=== PATIENT | male | born 1965 | race Caucasian/White ===

== ENCOUNTER 2024-04-29 11:30 | Inpatient (IN) | payer BC, SELFPAY ==
--- NOTE | ~2024-04-29 | CT_ITS ---
EXAMINATION: CT ABDOMEN AND PELVIS WITH CONTRAST CLINICAL INFORMATION: Abdominal distention. Right lower quadrant tenderness. Rule out bowel obstruction COMPARISON: None available. TECHNIQUE: Multidetector volumetric images were obtained from the superior aspect of the liver through the pubic symphysis following administration 85 mL of Omnipaque 350 intravenous contrast. Sagittal and coronal reformatted images were obtained on the technologist's workstation. Oral contrast: No This CT examination was performed using dose optimization techniques as appropriate, variously including the following: *Automated exposure control *Adjustment of mA and/or kV according to patient size (this includes techniques or standardized protocols for targeted exams where dose is matched to indication/reason for exam; i.e. extremities or head) *Use of iterative reconstruction technique DLP: 902 mGy-cm FINDINGS: LUNG BASES: The visualized lung bases are unremarkable. LIVER, GALLBLADDER, AND BILIARY TREE: The liver is normal in size, shape, and attenuation. No focal hepatic lesion or biliary ductal dilatation is present. The gallbladder is distended, with thickened edematous wall and pericholecystic fluid. PANCREAS: Unremarkable. SPLEEN: Unremarkable. ADRENAL GLANDS: Unremarkable. KIDNEYS AND URETERS: The kidneys are normal in size, shape, and attenuation. No hydronephrosis, hydroureter, or calculi seen. No perinephric stranding. BLADDER: Unremarkable. GASTROINTESTINAL TRACT: The small and large bowel are unremarkable. The appendix is unremarkable. ABDOMINAL WALL: No significant hernia is appreciated. LYMPH NODES: Normal. VASCULAR: Unremarkable. PELVIC VISCERA: Unremarkable. OSSEOUS STRUCTURES: Unremarkable. CT/CT abdomen pelvis w IV con IMPRESSION: Distended gallbladder with thickened edematous wall and pericholecystic fluid. Findings are concerning for acute cholecystitis. Recommend further evaluation with right upper quadrant ultrasound, and correlation with physical exam. Fleischner guidelines were followed. Electronically signed by: Addy Hammond MD 04/29/2024 02:58 PM EST
--- NOTE | ~2024-04-29 | US_ITS ---
EXAMINATION: US ABDOMEN LIMITED CLINICAL INFORMATION: Distended gallbladder. Rule out stones.. COMPARISON: CT scan dated April 29, 2024. TECHNIQUE: Real-time imaging of the gallbladder. FINDINGS: GALLBLADDER: The gallbladder is physiologically distended. There are innumerable, subcentimeter, layering gallstones. Mild diffuse gallbladder wall thickening. Trace pericholecystic fluid. No evidence of hyperemia. Technologist reports positive sonographic Eagle's sign. COMMON BILE DUCT: Normal in caliber measuring 0.5 cm in diameter. US/US abdomen limited IMPRESSION: innumerable, subcentimeter, layering gallstones. Mild diffuse gallbladder wall thickening. Trace pericholecystic fluid. No evidence of hyperemia. Technologist reports positive sonographic Eagle's sign. Electronically signed by: Arron Fox MD 04/29/2024 04:16 PM FANNIE
[2024-04-29 11:41] VITALS: BP 140/78; PULSE 77; RESP 19; TEMP 36.6; O2SAT 98
--- NOTE | 2024-04-29 11:41 | ED.ABDPAIN ---
HPI - Abdominal Pain General Chief Complaint: Abdominal Pain Stated Complaint: abd pain sent from urgent care Time Seen by Provider: 04/29/24 13:48 Source: patient and family Mode of arrival: ambulatory Limitations: no limitations History of Present Illness ED Provider: Dr. Ferny Fraga HPI narrative: 58-year-old male with a history of GERD, hernia repair, left knee surgery who presents emergency department for evaluation of abdominal pain, nausea, vomiting and abdominal distention. Patient states that he ate pepperoni/hamburgers/peppers/onion pizza yesterday at 21:30 hours. He states it 30 minutes later he developed sudden onset of abdominal pain. He states he felt very bloated. He then developed dry heaves and eventually vomited up the pizza and she was. He states that he did have a bowel movement yesterday at 19:45 hours. He states that he has been passing gas. Patient states that his pain is 10/10. He states the pain is located in his lower abdomen he does feel bloated. He went to an urgent care clinic and they are concerned that he had appendicitis and referred him to the emergency department to be seen. Related Data Home Medications ?Medication ?Instructions ?Recorded ?Confirmed esomeprazole magnesium 20 mg 20 mg PO DAILY@0630 04/29/24 04/29/24 capsule,delayed release Allergies Allergy/AdvReac Type Severity Reaction Status Date / Time No Known Allergies Allergy Verified 04/29/24 11:42 Review of Systems Review of Systems Yes all other systems are reviewed and are negative [facility] Past Medical History [facility] Narrative: Social history: He denies tobacco use. He states that he drinks 3 mixed drinks (DiffbotsNetpulse, ice tea and vodka) per day. He denies drug use. Social History Social History Patient Tobacco Use Status: Never used Tobacco Smoked in Last 30 Days: No Use of substances other than those prescribed or required for medical reasons: No Advance Directives: No Advance Directives Information Provided: Yes Do you have a plan to hurt others: No Plan Nutrition Risks: No Nutritional Risk Physical Exam ED Vital Signs: Vital Signs - 24 hr 04/29/24 11:41 04/29/24 14:39 Temperature 98 F 98.3 F Pulse Rate 77 85 Respiratory Rate 19 16 Blood Pressure 140/78 H 147/84 H Pulse Oximetry 98 98 Oxygen Delivery Method Room Air Room Air BMI result Body Mass Index 30.0 Vital signs were normal. Exam: General: Awake, alert in no distress, weight 108 point 8 kg, elevated BMI 30.0 kg per m2 Head: Normocephalic, atraumatic EENT: PERRL, Lids normal, sclera normal, conjunctiva normal, nose normal , ears normal, throat without erythema or exudates Neck: Supple, no adenopathy Lung: breath sounds symmetric, no wheezing, rales or rhonchi Chest: symmetric movement, nontender Heart: regular rate and rhythm, normal S1, S2 no murmurs or rubs Abdomen: obese, distended, normoactive bowel sounds, moderate suprapubic tenderness moderate to severe right lower quadrant tenderness, no rebound, no voluntary or involuntary guarding Back: no vertebral tenderness, no CVAT Extremities: no deformities, moves all extremities symmetrically Neuro: Awake, alert, oriented, normal speech, cranial nerves intact, moves all extremities symmetrically Psych: Pleasant, cooperative Course Course Course Narrative: This is a rapid medical exam. Deferred additional HPI, ROS, PE to primary provider. 58 yo male with history of GERD here with generalized abdominal pain, vomiting since last evening. Was seen at and referred in for imaging. Will obtain labs, OWEN Hall APRN Medical Decision Making Medical Decision Making MDM Narrative: 58-year-old male with a history of GERD, hernia repair, left knee surgery who presents emergency department for evaluation of abdominal pain, nausea, vomiting and abdominal distention with symptoms starting yesterday at 22:00 hours, 30 minutes after eating pizza with cheese, pepperoni, hamburger, but retirement onions. Patient had multiple episodes of dry heaves and vomiting. He states that he feels very distended but has been passing gas. Patient states that his pain is 10/10. Vital signs were normal. Physical examination did reveal mild to moderate suprapubic tenderness and moderate to severe right lower quadrant tenderness with no rebound, no voluntary or involuntary guarding Differential diagnosis: ?Includes but is not limited to bowel obstruction, appendicitis, pancreatitis, viscus perforation, gastritis, anemia, electrolyte abnormalities Course: 14:13 My interpretation patient's laboratory evaluation as follows: Elevated WBC 39427. Normal H&H 12 and 45. Elevated glucose 136. Elevated bilirubin of 1.1 with normal LFTs. Normal lipase. Urinalysis was negative. Given the patient's elevated white blood cell count , abdominal distention and significant right lower quadrant tenderness concerned that the patient may have a bowel obstruction versus appendicitis. Therefore I ordered a CT scan of the abdomen pelvis with IV contrast. Patient was treated with Toradol 15 mg IV,, Zofran 4 mg IV and normal saline x1 L. 15:52 The patient states that his pain went from 10/10 to 2/10 with the above treatment. The CT scan of the abdomen pelvis revealed a normal appendix but the patient does have an inflamed distended gallbladder. I did order right upper quadrant ultrasound to evaluate for possible gallstones. I did discuss the patient's presentation and CT findings over tiger text with the covering surgeon, Dr. Larson. He will admit the patient to his service and recommended IV antibiotics. I ordered Zosyn 4.5 g IV. I did discuss these findings with the patient and the patient's as well. 16:30 Right upper quadrant ultrasound is consistent with acute cholecystitis with layering gallstones Admission/Observation Consideration of admission/observation: Escalation of care including admission/observation considered (Yes) Lab Data MDM Lab Attestation statement: I reviewed the patient's lab results. 04/29/24 11:49 04/29/24 11:49 Labs: Lab Results 04/29/24 04/29/24 04/29/24 Range/Units 11:49 12:03 12:50 WBC 20.8 H (4.8-10.8) X10*3/uL RBC 4.99 (4.60-5.80) X10*6/uL Hgb 16.2 (14.0-18.0) g/dl Hct 45.9 (42.0-52.0) % MCV 92.0 (80.0-98.0) fL MCH 32.5 (27.0-33.0) pg MCHC 35.3 (31.0-36.0) g/dl RDW 13.1 (11.0-16.0) % Plt Count 216 (160-400) X10*3/uL MPV 10.6 (9.4-12.4) fL Immature Gran % (Auto) 0.5 H (0.0-0.4) % Neut % (Auto) 91.7 H (45-73) % Lymph % (Auto) 2.5 L (20-40) % [place] % (Auto) 5.1 (2-11) % Eos % (Auto) 0.0 (0-4) % Baso % (Auto) 0.2 (0-2) % Lymph # (Auto) 0.5 L (1.2-4.9) X10*3/uL [place] # (Auto) 1.1 (0.1-1.2) X10*3/uL Eos # (Auto) 0.0 (0.0-0.4) X10*3/uL Baso # (Auto) 0.1 (0.0-0.2) X10*3/uL Abs Immat Gran (auto) 0.10 H (0.00-0.03) X10*3/uL Absolute Neuts (auto) 19.0 H (2.0-8.3) x10*3/uL Absolute Nucleated RBC 0.000 (0.0-0.012) X10*3/uL Nucleated RBC % (auto) 0.0 (0.0-0.2) /100WBC Smear Tech's Comments VERIFIED Sodium 143 (135-145) mmol/L Potassium 4.1 (3.3-5.1) mmol/L Chloride 107 (96-108) mmol/L Carbon Dioxide 27 (22-29) mmol/L Anion Gap 13 (12-20) BUN 15 (9-16) mg/dL Creatinine 0.86 (0.5-1.4) mg/dL Estim Creat Clear Calc 126.3 Estimated GFR > 60 Random Glucose 136 H (60-115) mg/dL Lactic Acid 1.8 (0.5-2.0) mmol/L Calcium 9.8 (8.4-10.2) mg/dL Total Bilirubin 1.1 H (0.0-1.0) mg/dL Direct Bilirubin 0.3 (0.0-0.5) mg/dL AST 22 (5-37) U/L ALT 25 (0-40) U/L Alkaline Phosphatase 72 (39-117) U/L Total Protein 7.1 (6.5-8.0) g/dL Albumin 4.5 (3.5-5.0) g/dL Lipase 10 (8-78) U/L Urine Color Yellow Urine Appearance Clear Urine pH 6.0 (5.0-9.0) Ur Specific [place] >= 1.030 H (1.005-1.025) Urine Protein Trace (Neg-Trace) mg/dL Urine Glucose (UA) Negative (Negative) mg/dL Urine Ketones Trace (Negative) mg/dL Urine Blood Negative (Negative) Urine Nitrite Negative (Negative) Ur Leukocyte Esterase Negative (Negative) Radiology Impression Discussion of test interpretation with radiology: I have reviewed the radiologist's reading. Radiologist Impression: CT abdomen pelvis w IV con IMPRESSION: Distended gallbladder with thickened edematous wall and pericholecystic fluid. Findings are concerning for acute cholecystitis. Recommend further evaluation with right upper quadrant ultrasound, and correlation with physical exam. Fleischner guidelines were followed. Electronically signed by: Addy Hammond MD 04/29/2024 02:58 PM EST RP Dictated By: Addy Hammond MD US abdomen limited IMPRESSION: innumerable, subcentimeter, layering gallstones. Mild diffuse gallbladder wall thickening. Trace pericholecystic fluid. No evidence of hyperemia. Technologist reports positive sonographic Eagle's sign. Electronically signed by: Arron Fox MD 04/29/2024 04:16 PM EST Independent Historian Clinical information obtained from an independent historian. History obtained from or confirmed by: Spouse Medications Administered Generic Name Dose Route Start Last Admin Trade Name Freq PRN Reason Stop Dose Admin Acetaminophen 1,000 mg in 100 mls @ 400 mls/hr 04/29/24 16:00 04/29/24 16:25 Ofirmev IV 400 mls/hr Q6H ALEX Administration Dextrose/Lactated Ringer's 1,000 mls @ 125 mls/hr 04/29/24 16:00 04/29/24 16:37 D5lr IVCONT 125 mls/hr .Q8H ALEX Administration Piperacillin Sod/Tazobactam 50 mls @ 100 mls/hr 04/29/24 16:00 04/29/24 16:26 Sod 3.375 gm/ Sodium Chloride IV 100 mls/hr Q6H ALEX Administration Sodium Chloride 3 ml 04/29/24 16:00 04/29/24 16:17 0.9 % Sodium Chloride Flush 3 Ml Syringe IVFLUSH Not Given QSHIFT ALEX Discontinued Medications Generic Name Dose Route Start Last Admin Trade Name Ramiro PRN Reason Stop Dose Admin Sodium Chloride 1,000 mls @ 999 mls/hr 04/29/24 14:06 04/29/24 16:17 Ns IV 04/29/24 15:06 Infused .Q1H1M STA Infusion Iohexol 100 ml 04/29/24 14:18 04/29/24 14:18 Iohexol 350 Mg/Ml 100 Ml Infus..Btl IV 04/29/24 14:19 85 ml ONCE ONE Administration Ketorolac Tromethamine 15 mg 04/29/24 14:06 04/29/24 14:40 Ketorolac Tromethamine 15 Mg/Ml Vial IVPUSH 04/29/24 14:07 15 mg ONCE STA Administration Ondansetron HCl 4 mg 04/29/24 14:07 04/29/24 14:39 Ondansetron Hcl 4 Mg/2 Ml Vial IVPUSH 04/29/24 14:08 4 mg ONCE ONE Administration Discharge Plan Discharge Clinical Impression: Acute cholecystitis, Abdominal distension, Nausea & vomiting Patient Disposition: Admitted As Inpatient
[2024-04-29 12:05] LABS: Basophils Absolute Auto 0.1 X10*3/uL (0.0-0.2); Basophils Percent Auto 0.2 % (0-2); Hematocrit 45.9 % (42.0-52.0); Hemoglobin 16.2 g/dl (14.0-18.0); Imm Gran Pct Auto 0.5 % (0.0-0.4); Lymphocytes Absolute Auto 0.5 X10*3/uL (1.2-4.9); Lymphocytes Percent Auto 2.5 % (20-40); MANUAL DIFF FLAG SCAN; Mean Corpuscular HGB Conc 35.3 g/dl (31.0-36.0); Mean Corpuscular Hemoglobin 32.5 pg (27.0-33.0); Mean Platelet Volume 10.6 fL (9.4-12.4); Monocytes Absolute Auto 1.1 X10*3/uL (0.1-1.2); Monocytes Percent Auto 5.1 % (2-11); Neutrophils Percent Auto 91.7 % (45-73); Platelet Count 216 X10*3/uL (160-400); Red Blood Count 4.99 X10*6/uL (4.60-5.80); Red Cell Distribution Width 13.1 % (11.0-16.0); SCAN SMEAR FLAG 1; White Blood Count 20.8 X10*3/uL (4.8-10.8)
[2024-04-29 12:19] LABS: Alanine Aminotransferase 25 U/L (0-40); Albumin Level 4.5 g/dL (3.5-5.0); Alkaline Phosphatase 72 U/L (39-117); Anion Gap 13 (12-20); Aspartate Amino Transferase 22 U/L (5-37); Bilirubin Direct 0.3 mg/dL (0.0-0.5); Bilirubin Total 1.1 mg/dL (0.0-1.0); Blood Urea Nitrogen 15 mg/dL (9-16); Calcium 9.8 mg/dL (8.4-10.2); Carbon Dioxide 27 mmol/L (22-29); Chloride 107 mmol/L (96-108); Creatinine Clr Calc Pharmacy 126.3; Estimated Glomerular Filt Rate > 60; Glucose Random 136 mg/dL (60-115); Lipase 10 U/L (8-78); Potassium 4.1 mmol/L (3.3-5.1); Sodium 143 mmol/L (135-145); Total Protein 7.1 g/dL (6.5-8.0)
[2024-04-29 12:23] LABS: Appearance Urine Clear; Color Urine Yellow; Glucose Urine UA Negative (Negative); Leukocyte Esterase Urine Negative (Negative); Nitrite Urine Negative (Negative); Specific Gravity - Urine >= 1.030 (1.005-1.025); Urine Blood Negative (Negative); Urine Ketones Trace mg/dL (Negative); Urine Protein Trace mg/dL (Neg-Trace)
[2024-04-29 12:30] LABS: SLIDE REVIEW VERIFIED
--- NOTE | 2024-04-29 13:17 | PC.NURSE ---
a&ox4. vss and up to date. pt presents to the ED c/o generalized abd pain that shoots through the middle of his back x 10pm. pt denies aggravating factors. was not sleeping prior to fall. endorsing associated nausea, nonbloody vomiting and chills. pt denies fever/diarrhea. normal BMs. 20gIV placed in the right AC - labs obtained/sent to lab. on RA w/o difficulty - no sob/wob noted. respirations even/unlabored. plan of care ongoing. call kimball placed within reach.
[2024-04-29 13:19] LABS: Lactic Acid 1.8 mmol/L (0.5-2.0)
[2024-04-29] MEDS: iohexoL 350 MG/ML 100 ML INFUS..BTL IV (14:18)
[2024-04-29 14:39] VITALS: BP 147/84; PULSE 85; RESP 16; TEMP 36.8; O2SAT 98
[2024-04-29] MEDS: ondansetron HCL 4 MG/2 ML VIAL IVPUSH (14:39)
[2024-04-29] MEDS: 0.9 % Sodium Chloride 1,000 ML 999 ML IV (14:40)
[2024-04-29] MEDS: Ketorolac Tromethamine 15 MG/ML VIAL IVPUSH (14:40)
--- NOTE | 2024-04-29 14:43 | PC.NURSE ---
IVF/medication administered per provider order. effectiveness pending. pt waiting for CT results at this time.
--- NOTE | 2024-04-29 15:51 | PC.NURSE ---
ultrasound being completed at this time.
--- NOTE | 2024-04-29 15:57 | ECG_ITS ---
Test Reason : PREOP Blood Pressure : / mmHG Vent. Rate : 089 BPM Atrial Rate : 089 BPM P-R Int : 158 ms QRS Dur : 156 ms QT Int : 402 ms P-R-T Axes : 025 086 004 degrees QTc Int : 489 ms Normal sinus rhythm Right bundle branch block T wave abnormality, consider inferior ischemia Abnormal ECG No previous ECGs available Referred By: Ferny Fraga Electronically Signed By:Yousif Bennett
[2024-04-29 16:17] VITALS: BP 140/80; PULSE 87; RESP 18; TEMP 36.7; O2SAT 96
[2024-04-29] MEDS: Acetaminophen 1,000 MG/100 ML PIGGYBACK 400 MG IV ×2 (16:25→22:08)
[2024-04-29] MEDS: Piperacillin Sodium/Tazobactam 3.375 GM in 0.9 % Sodium Chloride 50 ML IV ×2 (16:26→22:27)
[2024-04-29] MEDS: Dextrose 5 % and Lactated Ring 1,000 ML 125 ML IVCONT (16:37)
--- NOTE | 2024-04-29 16:50 | PHA.MEDREC ---
Pharmacy Consult ? Medication Reconciliation Pharmacy has completed the medication reconciliation. Spoke to patient and confirmed medication list.
[2024-04-29 18:00] VITALS: BP 125/70; PULSE 86; RESP 19; TEMP 37.2; O2SAT 94
[2024-04-29 19:33] VITALS: BP 124/69; PULSE 82; RESP 16; TEMP 36.8; O2SAT 97
[2024-04-30] VITALS (9 sets, daily range): BP systolic 120–142; BP diastolic 66–85; PULSE 81–92; RESP 16–18; TEMP 36.5–37.8; O2SAT 93–95
[2024-04-30] MEDS: Dextrose 5 % and Lactated Ring 1,000 ML 125 ML IVCONT ×2 (01:57→15:08)
[2024-04-30] MEDS: Acetaminophen 1,000 MG/100 ML PIGGYBACK 400 MG IV ×4 (03:37→20:18)
[2024-04-30] MEDS: Piperacillin Sodium/Tazobactam 3.375 GM in 0.9 % Sodium Chloride 50 ML IV ×3 (04:06→20:16)
--- NOTE | 2024-04-30 05:59 | PM.HPGS ---
History of Present Illness History of Present Illness Date of Service: 04/30/24 Chief complaint: acute cholecystitis Narrative: Elmo Samano is a 58 year old male presenting to the ED with complaints of upper abdominal pain, nausea, vomiting and distension. The pain began 30 minutes after eating pizza on the day prior to presentation. On presentation to the ED his pain was 10/10. He initially was evaluated at urgent care and subsequently referred to the ED. Workup in the ED revealed an elevated WBC. CT revealed a dilated gallbladder with thickened wall. US of the abdomen confirmed gallbladder wall thickening as well as gallstones in the gallbladder. There was a sonographic Eagle's sign suggestive of acute cholecystitis. He is admitted to the surgical service for further management of the acute cholecystitis. Review of Systems Review of Systems: Yes all other systems are reviewed and are negative Constitutional: Constitutional: Denies chills, Denies fever(s), Denies headache(s), Reports poor appetite and Denies weakness ENT: Denies headache(s) Cardiovascular: Cardiovascular: Denies chest pain, Denies irregular heart rhythm, Denies palpitations and Denies dyspnea Respiratory: Respiratory: Denies cough, Denies excessive phlegm production and Denies dyspnea Gastrointestinal: Gastrointestinal: Reports abdominal pain, Denies bloating, Denies change in bowel habits, Denies constipation, Denies heartburn, Denies diarrhea, Reports nausea and Reports vomiting Genitourinary: Genitourinary: Denies difficulty urinating and Denies urinary frequency Musculoskeletal: Musculoskeletal: Denies back pain, Denies muscle weakness and Denies numbness Integumentary/Breasts: Skin/Breast: Denies changing lesions and Denies unusual bruising Neurologic: Denies headache(s), Denies numbness, Denies paresthesias and Denies weakness Psychiatric: Psychiatric: Denies anxiety and Denies depression Endocrine: Endocrine: Denies palpitations Hematologic/Lymphatic: Hematologic/Lymphatic: Denies lymphadenopathy PMFSH Past Medical History Medical History (Updated 04/30/24 @ 08:10 by Prashanth Coronado MD) GERD (gastroesophageal reflux disease) Social History Social History Household Members: Spouse and Family Housing: House Do you presently have visiting nurse or other home services: No Patient Tobacco Use Status: Never used Tobacco Smoked in Last 30 Days: No Use of substances other than those prescribed or required for medical reasons: No Currently Displaying Signs/Symptoms of Drug Intoxication Withdrawal: No Have you been hit, kicked, punched, or otherwise hurt by someone within the past year? If so, by whom?: No Do you feel safe in your current relationship?: Yes Is there a partner from a previous relationship who is making you feel unsafe now?: No Are you made to feel afraid or neglected: No Advance Directives: No Advance Directives Information Provided: Yes Do you have a plan to hurt others: No Plan Recently lost weight without trying: No Eating poorly because of decreased appetite: No Nutrition Risks: No Nutritional Risk Meds Allergies Allergy/AdvReac Type Severity Reaction Status Date / Time No Known Allergies Allergy Verified 04/29/24 11:42 Active Medications: Current Medications Hydromorphone HCl (Hydromorphone Hcl 0.5 Mg/0.5 Ml Syringe) 0.5 mg IVPUSH Q3H PRN; Protocol PRN Reason: Pain, Severe (Pain Scale 7-10) Acetaminophen (Ofirmev) 1,000 mg in 100 mls @ 400 mls/hr IV Q6H [facility] Last Infusion: 04/30/24 04:08 Dose: Infused Dextrose/Lactated Ringer's (D5lr) 1,000 mls @ 125 mls/hr IVCONT .Q8H [facility] Last Admin: 04/30/24 01:57 Dose: 125 mls/hr Piperacillin Sod/Tazobactam (Sod 3.375 gm/ Sodium Chloride) 50 mls @ 100 mls/hr IV Q6H [facility] Last Infusion: 04/30/24 04:40 Dose: Infused Ondansetron HCl (Ondansetron Hcl 4 Mg/2 Ml Vial) 4 mg IVPUSH QID PRN PRN Reason: Nausea Sodium Chloride (0.9 % Sodium Chloride Flush 3 Ml Syringe) 3 ml IVFLUSH QSHIFT [facility] Last Admin: 04/30/24 00:08 Dose: Not Given Zolpidem Tartrate (Zolpidem Tartrate 5 Mg Tablet) 5 mg PO BEDTIME PRN PRN Reason: Insomnia Home Medications ?Medication ?Instructions ?Recorded ?Confirmed ?Last Taken ?Type esomeprazole magnesium 20 mg 20 mg PO DAILY@0630 04/29/24 04/29/24 04/28/24 History capsule,delayed release Physical Exam Vital Signs: Vital Signs: Last Vital Signs Temp 98.7 F 04/30/24 03:56 Pulse 86 04/30/24 03:56 Resp 16 04/30/24 03:56 BP 124/66 04/30/24 03:56 Pulse Ox 94 04/30/24 03:56 O2 Del Method Room Air 04/30/24 03:56 BMI result Body Mass Index 30.0 Const: General: cooperative and no acute distress Nutritional Appearance: well nourished Orientation/consciousness: patient oriented x3 Limitations: no limitations HEENT: Head: Yes normocephalic and Yes atraumatic Ears: hearing grossly normal bilaterally Resp: Effort & Inspection: normal respiratory effort, no audible wheezes, no cough and no respiratory distress Cardio: Jugular venous distension: no JVD GI: Inspection: Yes normal to inspection Palpation (GI): Tenderness to palpation present (GI) in the epigastrum, in the RUQ and Eagle's sign positive, no guarding, not rigid and No hepatosplenomegaly present Percussion: Yes normal to percussion Auscultation: normal bowel sounds Rectal Exam - Male: Yes deferred Skin: Other: Warm, dry, no rash Neuro: General: patient oriented x3 Extrem: General: Yes no clubbing, cyanosis or edema Results Results Labs: Short CBC 04/29/24 Range/Units 11:49 WBC 20.8 H (4.8-10.8) X10*3/uL Hgb 16.2 (14.0-18.0) g/dl Hct 45.9 (42.0-52.0) % Plt Count 216 (160-400) X10*3/uL BMP 04/29/24 11:49 Sodium 143 Potassium 4.1 Chloride 107 Carbon Dioxide 27 BUN 15 Creatinine 0.86 Calcium 9.8 Liver Function 04/29/24 Range/Units 11:49 Total Bilirubin 1.1 H (0.0-1.0) mg/dL Direct Bilirubin 0.3 (0.0-0.5) mg/dL AST 22 (5-37) U/L ALT 25 (0-40) U/L Alkaline Phosphatase 72 (39-117) U/L Albumin 4.5 (3.5-5.0) g/dL Urine 12/07/24 Range/Units 12:03 Urine Color Yellow Urine Appearance Clear Urine pH 6.0 (5.0-9.0) Ur Specific [place] >= 1.030 H (1.005-1.025) Urine Protein Trace (Neg-Trace) mg/dL Urine Glucose (UA) Negative (Negative) mg/dL Assessment and Plan (1) Acute cholecystitis: Status: Acute Plan 58-year-old male patient presenting with complaints of abdominal pain in the right upper quadrant developed soon after eating pizza. Pain was associated with nausea and vomiting. Workup revealed tenderness in the right upper quadrant with a positive Eagle sign. Ultrasound revealed multiple gallstones within the gallbladder with wall thickening and a positive sonographic Eagle sign. Findings are suggestive of acute cholecystitis. Findings were reviewed in detail with the patient and recommendation made for laparoscopic or possible open cholecystectomy. I reviewed the procedure, risks, and alternatives, he consents to the laparoscopic or possible open cholecystectomy. He has been added onto the operative schedule for today. Quality Stroke Does the patient have a stroke diagnosis?: No VTE Prior VTE?: No VTE Risk Level:: Surgical - moderate VTE Device Contraindication: N/A - Device Ordered VTE Drug Contraindication: Treatment Not Indicated Procedures Date of Service Date of Service: 04/30/24
[2024-04-30 06:43] LABS: MANUAL DIFF FLAG NO
[2024-04-30 07:13] LABS: Basophils Percent Auto 0.3 % (0-2); Eosinophils Percent Auto 0.3 % (0-4); Hemoglobin 13.9 g/dl (14.0-18.0); Imm Gran Abs Auto 0.08 X10*3/uL (0.00-0.03); Imm Gran Pct Auto 0.6 % (0.0-0.4); Lymphocytes Absolute Auto 0.8 X10*3/uL (1.2-4.9); Mean Corpuscular HGB Conc 34.8 g/dl (31.0-36.0); Mean Corpuscular Hemoglobin 32.3 pg (27.0-33.0); Mean Platelet Volume 11.2 fL (9.4-12.4); Monocytes Absolute Auto 0.8 X10*3/uL (0.1-1.2); Neutrophils Absolute Auto 11.9 x10*3/uL (2.0-8.3); Neutrophils Percent Auto 86.8 % (45-73); Platelet Count 168 X10*3/uL (160-400); Red Cell Distribution Width 13.2 % (11.0-16.0); White Blood Count 13.7 X10*3/uL (4.8-10.8)
[2024-04-30 07:24] LABS: Alanine Aminotransferase 15 U/L (0-40); Albumin Level 3.5 g/dL (3.5-5.0); Alkaline Phosphatase 54 U/L (39-117); Anion Gap 11 (12-20); Aspartate Amino Transferase 17 U/L (5-37); Bilirubin Direct 0.6 mg/dL (0.0-0.5); Bilirubin Total 2.1 mg/dL (0.0-1.0); Blood Urea Nitrogen 13 mg/dL (9-16); Calcium 8.8 mg/dL (8.4-10.2); Carbon Dioxide 26 mmol/L (22-29); Chloride 108 mmol/L (96-108); Creatinine Clr Calc Pharmacy 110.8; Estimated Glomerular Filt Rate > 60; Glucose Random 158 mg/dL (60-115); Potassium 3.7 mmol/L (3.3-5.1); Sodium 141 mmol/L (135-145); Total Protein 5.6 g/dL (6.5-8.0)
--- NOTE | 2024-04-30 10:58 | P.CONAN_ITS ---
HPI - Anesthesia Eval Consult details Narrative: Acute cholecystitis PMFSH Active Problems Active Problems: All Active Problems GERD (gastroesophageal reflux disease) (Acute) Acute cholecystitis (Acute) Nausea & vomiting (Acute) Abdominal distension (Acute) Past Medical History Medical History (Updated 04/30/24 @ 08:10 by Prashanth Coronado MD) GERD (gastroesophageal reflux disease) Family History Family history of problems with anesthesia: No Surgical History History of Problems with Anesthesia: No Social History Social History Household Members: Spouse and Family Housing: House Do you presently have visiting nurse or other home services: No Patient Tobacco Use Status: Never used Tobacco Smoked in Last 30 Days: No Use of substances other than those prescribed or required for medical reasons: No Currently Displaying Signs/Symptoms of Drug Intoxication Withdrawal: No Have you been hit, kicked, punched, or otherwise hurt by someone within the past year? If so, by whom?: No Do you feel safe in your current relationship?: Yes Is there a partner from a previous relationship who is making you feel unsafe now?: No Are you made to feel afraid or neglected: No Advance Directives: No Advance Directives Information Provided: Yes Do you have a plan to hurt others: No Plan Recently lost weight without trying: No Eating poorly because of decreased appetite: No Nutrition Risks: No Nutritional Risk Meds Allergies Allergy/AdvReac Type Severity Reaction Status Date / Time No Known Allergies Allergy Verified 04/29/24 11:42 Active Medications: Current Medications Hydromorphone HCl (Hydromorphone Hcl 0.5 Mg/0.5 Ml Syringe) 0.5 mg IVPUSH Q3H PRN; Protocol PRN Reason: Pain, Severe (Pain Scale 7-10) Acetaminophen (Ofirmev) 1,000 mg in 100 mls @ 400 mls/hr IV Q6H [facility] Last Infusion: 04/30/24 10:50 Dose: Infused Dextrose/Lactated Ringer's (D5lr) 1,000 mls @ 125 mls/hr IVCONT .Q8H [facility] Last Admin: 04/30/24 01:57 Dose: 125 mls/hr Piperacillin Sod/Tazobactam (Sod 3.375 gm/ Sodium Chloride) 50 mls @ 100 mls/hr IV Q6H [facility] Last Infusion: 04/30/24 04:40 Dose: Infused Ondansetron HCl (Ondansetron Hcl 4 Mg/2 Ml Vial) 4 mg IVPUSH QID PRN PRN Reason: Nausea Sodium Chloride (0.9 % Sodium Chloride Flush 3 Ml Syringe) 3 ml IVFLUSH QSHIFT [facility] Last Admin: 04/30/24 09:13 Dose: Not Given Zolpidem Tartrate (Zolpidem Tartrate 5 Mg Tablet) 5 mg PO BEDTIME PRN PRN Reason: Insomnia Home Medications ?Medication ?Instructions ?Recorded ?Confirmed ?Last Taken ?Type esomeprazole magnesium 20 mg 20 mg PO DAILY@0630 04/29/24 04/29/24 04/28/24 History capsule,delayed release Exam Height,Weight and Vital Signs: Height 6 ft 3 in Weight 108.862 kg Last Vital Signs Temp 100.0 F 04/30/24 08:00 Pulse 88 04/30/24 08:00 Resp 18 04/30/24 08:00 BP 132/79 04/30/24 08:00 Pulse Ox 94 04/30/24 08:00 O2 Del Method Room Air 04/30/24 08:00 Pertinent Lab Results Pertinent Lab Results: Laboratory Tests 04/29/24 04/29/24 04/29/24 11:49 12:03 12:50 WBC 20.8 H RBC 4.99 Hgb 16.2 Hct 45.9 MCV 92.0 MCH 32.5 MCHC 35.3 RDW 13.1 Plt Count 216 MPV 10.6 Immature Gran % (Auto) 0.5 H Neut % (Auto) 91.7 H Lymph % (Auto) 2.5 L Carlton % (Auto) 5.1 Eos % (Auto) 0.0 Baso % (Auto) 0.2 Lymph # (Auto) 0.5 L Carlton # (Auto) 1.1 Eos # (Auto) 0.0 Baso # (Auto) 0.1 Abs Immat Gran (auto) 0.10 H Absolute Neuts (auto) 19.0 H Absolute Nucleated RBC 0.000 Nucleated RBC % (auto) 0.0 Smear Tech's Comments VERIFIED Sodium 143 Potassium 4.1 Chloride 107 Carbon Dioxide 27 Anion Gap 13 BUN 15 Creatinine 0.86 Estim Creat Clear Calc 126.3 Estimated GFR > 60 Random Glucose 136 H Lactic Acid 1.8 Calcium 9.8 Total Bilirubin 1.1 H Direct Bilirubin 0.3 AST 22 ALT 25 Alkaline Phosphatase 72 Total Protein 7.1 Albumin 4.5 Lipase 10 Urine Color Yellow Urine Appearance Clear Urine pH 6.0 Ur Specific Sedan >= 1.030 H Urine Protein Trace Urine Glucose (UA) Negative Urine Ketones Trace Urine Blood Negative Urine Nitrite Negative Ur Leukocyte Esterase Negative 04/30/24 06:07 WBC 13.7 H RBC 4.30 L Hgb 13.9 L Hct 40.0 L MCV 93.0 MCH 32.3 MCHC 34.8 RDW 13.2 Plt Count 168 MPV 11.2 Immature Gran % (Auto) 0.6 H Neut % (Auto) 86.8 H Lymph % (Auto) 6.0 L Carlton % (Auto) 6.0 Eos % (Auto) 0.3 Baso % (Auto) 0.3 Lymph # (Auto) 0.8 L Carlton # (Auto) 0.8 Eos # (Auto) 0.0 Baso # (Auto) 0.0 Abs Immat Gran (auto) 0.08 H Absolute Neuts (auto) 11.9 H Absolute Nucleated RBC 0.000 Nucleated RBC % (auto) 0.0 Smear Tech's Comments Sodium 141 Potassium 3.7 Chloride 108 Carbon Dioxide 26 Anion Gap 11 L BUN 13 Creatinine 0.98 Estim Creat Clear Calc 110.8 Estimated GFR > 60 Random Glucose 158 H Lactic Acid Calcium 8.8 D Total Bilirubin 2.1 H Direct Bilirubin 0.6 H AST 17 ALT 15 Alkaline Phosphatase 54 Total Protein 5.6 L Albumin 3.5 Lipase Urine Color Urine Appearance Urine pH Ur Specific [place] Urine Protein Urine Glucose (UA) Urine Ketones Urine Blood Urine Nitrite Ur Leukocyte Esterase Airway Mallampati Class: II TM Dist: >3cm Neck ROM: Full Loose/Missing/Broken Teeth: No Heart: RRR Lungs: CTA Assessment and Plan Assessment Anesthesia Assessment: Anesthesia Plan Discussed and Chart Reviewed Final Anesthetic Review Family History of Problems with Anesthesia: No History of Problems with Anesthesia: No NPO: Yes ASA Class: II and Emergency Final Preanesthetic Review: No Changes in Pt Med Stat, Meds/Allgs Chart Reviewed, Consent Obtained/Reviewed and Anes Risks/Benef Reviewed Patient Risk: Intermediate Procedure Risk: Intermediate Anesthetic Plan Anesthetic Plan: GA Disposition: Standard PACU
--- NOTE | 2024-04-30 13:43 | P.OP_ITS ---
Operative Note Operative Note Date of Service: 04/30/24 Narrative: Preoperative diagnosis: Acute cholecystitis due to cholelithiasis Postoperative diagnosis: Same Procedure: Laparoscopic converted to open cholecystectomy Surgeon: Prashanth Coronado MD Wildlife Science Professor: None Anesthesia: General endotracheal Indications for procedure: 58-year-old male patient presenting with complaints of abdominal pain in the right upper quadrant. The pain began after eating pizza and increased in severity over the last several hours. Operative findings: Markedly inflamed gallbladder with adhesions to transverse colon and stomach Specimen: Gallbladder Estimated blood loss: 25 Complications: None Drains: Dionte-Barbosa large Procedure details: Patient was brought to the OR and placed in a supine position. After administering general anesthesia the patient's abdomen was prepped with ChloraPrep and draped in a sterile fashion. Surgical time-out was called the consent confirmed. Patient received preoperative antibiotics and Venodyne boots were in place. Local anesthesia was infiltrated over the umbilicus. A 5 mm incision was then made with a scalpel and a Veress needle was inserted. After positive drop test the abdomen was insufflated to a pressure of 15 mmHg. A Veress needle was removed and a 5 mm trocar placed under direct vision. Abdomen was explored. A 12 mm trocar was then placed in epigastrium under direct vision. Two 5 mm trocars were placed in the right upper quadrant. The patient was placed in a reverse Trendelenburg position and rotated to the left. Gallbladder was found to be very stuck to the surrounding organs but a small portion was able to be identified. This was found to be markedly distended making it difficult to grasped with the graspers. A endoscopic needle was then used to aspirate the bile. Clear bile was identified suggestive of an obstructed gallbladder. The gallbladder was able to be grasped however the dense adhesions to the liver and gallbladder felt to be too densely adherent to allow safe dissection. The decision was made to convert to an open procedure. A Huang incision was then created with a 15 blade. Incision was carried down to the anterior rectus sheath. This was incised with the electrocautery. R ectus muscle and oblique muscles were then incised again with electrocautery. Posterior sheath and peritoneum were then entered. A Bookwalter retractor was placed. Gallbladder was retracted brought up through the incision. This was grasped with a Kiki clamp. The dense adhesions were gently taken down using a combination of sharp and electrocautery dissection. The transverse colon was then protected and retracted using the Bookwalter retractor. Stomach was also dissected free from the gallbladder surface in a similar fashion. Peritoneum was then incised with the electrocautery. The gallbladder was then dissected off the liver bed. Cystic artery was identified and doubly clipped. This was then divided. Dissection was continued down to the neck of the gallbladder. The gallbladder was then clamped using a right angle clamp. The gallbladder was excised and the cystic duct ligated using a 0 Polysorb suture. A 2nd 0 Polysorb tie was used to complete the closure. The gallbladder was removed and sent to pathology for further examination. The abdomen was then irrigated with saline solution and suctioned dry. No bile leak or bleeding could be identified. A large Dionte-Barbosa drain was left at the gallbladder fossa and brought out through a separate stab wound in the right upper quadrant. This was secured to the skin using a 3-0 nylon suture. This was connected to a small bulb suctioned. Peritoneum was then closed using a running 0 Polysorb suture. Posterior sheath and anterior rectus sheath were each individually reapproximated using running 0 Polysorb sutures. Daniela's fascia and dermis were reapproximated using interrupted 3-0 Polysorb sutures. Skin was then closed using skin melissa on all incisions. Sterile dressings were then applied. The patient tolerated the procedure well. Sponge, instrument, and needle counts reported as correct. The patient was transferred to PACU in stable condition.
[2024-04-30 13:54] LABS: Glucose, Whole Blood 143 mg/dL (60-115)
[2024-04-30] MEDS: ondansetron HCL 4 MG/2 ML VIAL IVPUSH (14:01)
[2024-04-30] MEDS: droPERidol 5 MG/2 ML VIAL 1.25 MG IVPUSH (14:10)
--- NOTE | 2024-04-30 14:25 | MHC.CM.PN ---
PT LIVES WITH IS INDEPENDENT HAS A RIDE HOME NO SERVICES INDICATED DC PLAN HOME NO SERVOES
[2024-04-30] MEDS: HYDROmorphone HCl 0.5 MG/0.5 ML SYRINGE IVPUSH (17:06)
[2024-04-30] MEDS: Prochlorperazine Edisylate 10 MG/2 ML VIAL IVPUSH (18:35)
[2024-05-01] MEDS: HYDROmorphone HCl 0.5 MG/0.5 ML SYRINGE IVPUSH ×2 (01:09→13:25)
[2024-05-01] MEDS: Piperacillin Sodium/Tazobactam 3.375 GM in 0.9 % Sodium Chloride 50 ML IV ×4 (01:10→19:57)
[2024-05-01] MEDS: 0.9 % Sodium Chloride Flush 3 ML SYRINGE IVFLUSH ×2 (01:10→13:26)
[2024-05-01] MEDS: Dextrose 5 % and Lactated Ring 1,000 ML 125 ML IVCONT (02:01)
[2024-05-01] MEDS: Acetaminophen 1,000 MG/100 ML PIGGYBACK 400 MG IV ×2 (02:04→07:10)
[2024-05-01 03:39] VITALS: BP 107/62; PULSE 75; RESP 76; TEMP 36.7; O2SAT 92
[2024-05-01 07:11] VITALS: BP 119/69; PULSE 75; RESP 16; TEMP 36.6; O2SAT 92
--- NOTE | 2024-05-01 08:06 | PM.PNGS ---
Subjective Subjective Date of Service: 05/01/24 Interval history: Reports some incisional discomfort, has been comfortable with pain meds. OOB to recliner and bathroom. Tolerating solid diet. Physical Exam Vital Signs: Vital Signs: Last Vital Signs Temp 97.9 F 05/01/24 07:11 Pulse 75 05/01/24 07:11 Resp 16 05/01/24 07:11 BP 119/69 05/01/24 07:11 Pulse Ox 92 05/01/24 07:11 O2 Del Method Room Air 05/01/24 07:11 O2 Flow Rate 3 04/30/24 14:59 BMI result Body Mass Index 30.0 Const: General: comfortable, no acute distress and alert Orientation/consciousness: patient oriented x3 Resp: Effort & Inspection: normal respiratory effort GI: Other: MEI drain serosang output Inspection: No distended and Yes incision (dressings c/d/i) Palpation (GI): Soft to palpation, Tenderness to palpation present (GI) (mild incisional) and no guarding Skin: General skin exam: no rashes or lesions noted and no jaundice Neuro: General: patient oriented x3 and moves all extremities Objective Data Active Medications Hydromorphone HCl (Hydromorphone Hcl 0.5 Mg/0.5 Ml Syringe) 0.5 mg IVPUSH Q3H PRN; Protocol PRN Reason: Pain, Severe (Pain Scale 7-10) Last Admin: 05/01/24 01:09 Dose: 0.5 mg Documented By: TESSY Acetaminophen (Ofirmev) 1,000 mg in 100 mls @ 400 mls/hr IV Q6H [facility] Stop: 05/01/24 08:50 Last Infusion: 05/01/24 07:32 Dose: Infused Documented By: MAILE Piperacillin Sod/Tazobactam (Sod 3.375 gm/ Sodium Chloride) 50 mls @ 100 mls/hr IV Q6H [facility] Last Infusion: 05/01/24 07:44 Dose: Infused Documented By: MAILE Dextrose/Lactated Ringer's (D5lr) 1,000 mls @ 125 mls/hr IVCONT .Q8H [facility] Last Admin: 05/01/24 07:09 Dose: Not Given Documented By: MAILE Non-Admin Reason: IV Running Ondansetron HCl (Ondansetron Hcl 4 Mg/2 Ml Vial) 4 mg IVPUSH QID PRN PRN Reason: Nausea Last Admin: 04/30/24 14:01 Dose: 4 mg Documented By: YAKOV Oxycodone HCl (Oxycodone Hcl Immed Release 5 Mg Tablet) 5 mg PO Q6H PRN PRN Reason: Pain, Moderate(Pain Scale 4-6) Prochlorperazine Edisylate (Prochlorperazine Edisylate 10 Mg/2 Ml Vial) 10 mg IVPUSH Q4H PRN PRN Reason: nausea not resolved w/ zofran Last Admin: 04/30/24 18:35 Dose: 10 mg Documented By: KENZIE Sodium Chloride (0.9 % Sodium Chloride Flush 3 Ml Syringe) 3 ml IVFLUSH QSHIFT [facility] Last Admin: 05/01/24 07:09 Dose: Not Given Documented By: MAILE Non-Admin Reason: IV Running Zolpidem Tartrate (Zolpidem Tartrate 5 Mg Tablet) 5 mg PO BEDTIME PRN PRN Reason: Insomnia Labs 04/30/24 06:07 04/30/24 06:07 Labs: Laboratory Results - last 24 hr 04/30/24 13:49 POC Glucose 143 H Microbiology Microbiology Results: Microbiology 04/29/24 12:50 Blood Culture - Preliminary Blood - Venous No growth after 24 hours. 04/29/24 12:50 Blood Culture - Preliminary Blood - Venous No growth after 24 hours. Procedures Date of Service Date of Service: 05/01/24 Progress Note: A&P Assessment and plan (1) Acute cholecystitis: Status: Acute (2) S/P cholecystectomy: Status: Acute Plan POd #1 s/p lap attempted converted to open cholecystectomy. Markedly inflamed gallbladder with adhesions to transverse colon and stomach. Doing fairly well post op. Hemodynamically stable. Abd benign with clean dressings, scant nonbilious MEI drain output. Dc IVF. Pain control. Increase activity, incentive spirometer use. Home when comfortable on oral analgesics. Patient comfortable with plan. Will remove MEI drain prior. Time Spent With Patient Time: Total time managing care of this patient today ____ minutes. Quality Stroke Does the patient have a stroke diagnosis?: No VTE Prior VTE?: No VTE Risk Level:: Surgical - moderate VTE Device Contraindication: N/A - Device Ordered VTE Drug Contraindication: Treatment Not Indicated
[2024-05-01] MEDS: oxyCODONE HCl Immed Release 5 MG TABLET PO ×3 (09:20→19:07)
--- NOTE | 2024-05-01 11:31 | MHC.CM.PN ---
POD#1 open Kaye. Per surgery Patient continues on IV pain medication. He will discharge once comfortable on PO analgesics. DP Home self care. Patient's will provide transportation home.
[2024-05-01] MEDS: Acetaminophen 325 MG TABLET 650 MG PO ×2 (12:35→19:58)
[2024-05-01 15:19] VITALS: BP 128/58; PULSE 80; RESP 18; TEMP 37.2; O2SAT 95
[2024-05-01 19:31] VITALS: BP 131/65; PULSE 82; RESP 16; TEMP 37.3; O2SAT 95
[2024-05-01 22:12] VITALS: TEMP 37.3
[2024-05-02] MEDS: Piperacillin Sodium/Tazobactam 3.375 GM in 0.9 % Sodium Chloride 50 ML IV ×2 (01:01→08:22)
[2024-05-02] MEDS: 0.9 % Sodium Chloride Flush 3 ML SYRINGE IVFLUSH ×2 (01:01→08:23)
[2024-05-02] MEDS: Acetaminophen 325 MG TABLET 650 MG PO ×2 (03:16→11:14)
[2024-05-02 03:24] VITALS: BP 142/90; PULSE 76; RESP 18; TEMP 37.3; O2SAT 94
[2024-05-02 07:45] VITALS: BP 156/93; PULSE 78; RESP 16; TEMP 37.1; O2SAT 95
--- NOTE | 2024-05-02 08:02 | P.PNGS_ITS ---
Subjective Subjective Date of Service: 05/02/24 Interval history: Tolerating solid diet. OOB and ambulated halls yesterday. Feels better, moderate incisional pain but comfortable. Physical Exam 2 Vital Signs: Vital Signs: Last Vital Signs Temp 98.7 F 05/02/24 07:45 Pulse 78 05/02/24 07:45 Resp 16 05/02/24 07:45 BP 156/93 H 05/02/24 07:45 Pulse Ox 95 05/02/24 07:45 O2 Del Method Room Air 05/02/24 07:45 O2 Flow Rate 3 04/30/24 14:59 BMI result Body Mass Index 30.0 Const: General: comfortable, no acute distress and alert O rientation/consciousness: patient oriented x3 Resp: Effort & Inspection: normal respiratory effort GI: Other: MEI drain serosang, removed Inspection: No distended and Yes incision (clean) Palpation (GI): Soft to palpation, Tenderness to palpation present (GI) (mild incisional) and no guarding Skin: General skin exam: no rashes or lesions noted and no jaundice Neuro: General: patient oriented x3 and moves all extremities Objective Data Active Medications Acetaminophen (Acetaminophen 325 Mg Tablet) 650 mg PO Q6H PRN PRN Reason: Pain, Mild (Pain Scale 1-3) Last Admin: 05/02/24 03:16 Dose: 650 mg Documented By: RENZO Hydromorphone HCl (Hydromorphone Hcl 0.5 Mg/0.5 Ml Syringe) 0.5 mg IVPUSH Q3H PRN; Protocol PRN Reason: Pain, Severe (Pain Scale 7-10) Last Admin: 05/01/24 13:25 Dose: 0.5 mg Documented By: REYNALDO Piperacillin Sod/Tazobactam (Sod 3.375 gm/ Sodium Chloride) 50 mls @ 100 mls/hr IV Q6H [facility] Last Infusion: 05/02/24 01:40 Dose: Infused Documented By: KARON Ondansetron HCl (Ondansetron Hcl 4 Mg/2 Ml Vial) 4 mg IVPUSH QID PRN PRN Reason: Nausea Last Admin: 04/30/24 14:01 Dose: 4 mg Documented By: YAKOV Oxycodone HCl (Oxycodone Hcl Immed Release 5 Mg Tablet) 5 mg PO Q4H PRN PRN Reason: Pain, Moderate(Pain Scale 4-6) Last Admin: 05/01/24 19:07 Dose: 5 mg Documented By: REYNALDO Prochlorperazine Edisylate (Prochlorperazine Edisylate 10 Mg/2 Ml Vial) 10 mg IVPUSH Q4H PRN PRN Reason: nausea not resolved w/ zofran Last Admin: 04/30/24 18:35 Dose: 10 mg Documented By: KENZIE Sodium Chloride (0.9 % Sodium Chloride Flush 3 Ml Syringe) 3 ml IVFLUSH QSHIFT [facility] Last Admin: 05/02/24 01:01 Dose: 3 ml Documented By: KARON Zolpidem Tartrate (Zolpidem Tartrate 5 Mg Tablet) 5 mg PO BEDTIME PRN PRN Reason: Insomnia Labs 04/30/24 06:07 04/30/24 06:07 Microbiology Microbiology Results: Microbiology 04/29/24 12:50 Blood Culture - Preliminary Blood - Venous No growth after 48 hours. 04/29/24 12:50 Blood Culture - Preliminary Blood - Venous No growth after 48 hours. Procedures Date of Service Date of Service: 05/02/24 Progress Note: A&P Assessment and plan (1) S/P cholecystectomy: Status: Acute (2) Acute cholecystitis: Status: Acute Plan POD #2 s/p lap attempted converted to open cholecystectomy. Markedly inflamed gallbladder with adhesions to transverse colon and stomach. Continues to do well post op. Feels well, abd pain controlled. Abd benign with clean incisions, MEI drain nonbilious and removed. Will reassess later today for possible dc to home. Patient comfortable with plan. Time Spent With Patient Time: Total time managing care of this patient today ____ minutes. Quality Stroke Does the patient have a stroke diagnosis?: No VTE Prior VTE?: No VTE Risk Level:: Surgical - moderate VTE Device Contraindication: N/A - Device Ordered VTE Drug Contraindication: Treatment Not Indicated
--- NOTE | 2024-05-02 09:52 | HO.POSTANES ---
Post Anesthesia Evaluation Post Anesthesia Evaluation Date of Service: 05/02/24 Vital Signs: Vital Signs Temp Pulse Resp BP Pulse Ox O2 Del Method 05/02/24 07:45 98.7 F 78 16 156/93 H 95 Room Air 05/02/24 03:24 99.2 F 76 18 142/90 H 94 Room Air 05/01/24 22:12 99.1 F Anesthesia: General Endotracheal-GETA Mental Status: Awake Pain Control: Satisfactory Nausea/Vomiting: None Hydration: Adequate Anesthesia-Related Issues: No Anes. Related Issues
[2024-05-02] MEDS: oxyCODONE HCl Immed Release 5 MG TABLET PO (10:19)
--- NOTE | 2024-05-02 11:10 | MHC.CM.PN ---
PATIENT IS DC HOME SELF CARE
--- NOTE | 2024-05-02 14:25 | P.DS_ITS ---
DS: Providers Provider Date of Service: 05/02/24 Date of admission: 04/29/24 15:55 Date of discharge: 05/02/24 Primary care physician: Chevy Ahumada MD Attending physician on admission: Prashanth Coronado Attending physician on discharge: Prashanth Coronado DS: Diagnosis Discharge Diagnosis (1) S/P cholecystectomy: Status: Acute (2) Acute cholecystitis: Status: Acute DS: Summary Hospital Course Hospital Course: HPI AT ADMISSION: Elmo Samano is a 58 year old male presenting to the ED with complaints of upper abdominal pain, nausea, vomiting and distension. The pain began 30 minutes after eating pizza on the day prior to presentation. On presentation to the ED his pain was 10/10. He initially was evaluated at urgent care and subsequently referred to the ED. Workup in the ED revealed an elevated WBC. CT revealed a dilated gallbladder with thickened wall. US of the abdomen confirmed gallbladder wall thickening as well as gallstones in the gallbladder. There was a sonographic Eagle's sign suggestive of acute cholecystitis. HOSPITAL COURSE: The patient was admitted to the surgical service for further treatment of the acute cholecystitis. He was started on IV zosyn. He elected to proceed with laparoscopic cholecystectomy, possible open. He was added onto the OR schedule for that day. On 04/30/24, a laparoscopic attempted converted to open cholecystectomy was performed by Dr. Coronado without complication. He was found to have markedly inflamed gallbladder with adhesions to transverse colon and stomach. The patient tolerated the procedure well. He had an uncomplicated recovery course. He remained inpatient for 2 days post operatively for pain control. On the day of discharge, POD #2, he felt well and was tolerating a solid diet without nausea or vomiting, had good pain control and was ambulating without difficulty. He was hemodynamically stable. His abdomen was benign with appropriate post op tenderness and clean incisions. His MEI drain had scant serosanguineous output and was removed. He felt ready for discharge. He was discharged to home on 05/02/24 in stable condition. He is to follow up in the office in 1 week. Status at Discharge Functional status at discharge: independent ambulation Overall status at discharge: patient is progressing back to baseline Time Attestation Discharge Coordination Time (in mins): 30 Quality: Safe Use of Opioids Does Pt have an Active Cancer Diagnosis on the Problem List?: No Quality: Stroke Does the patient have a stroke diagnosis?: No Physical Exam Vital Signs: Vital Signs: Last Vital Signs Temp 98.7 F 05/02/24 07:45 Pulse 78 05/02/24 07:45 Resp 16 05/02/24 07:45 BP 156/93 H 05/02/24 07:45 Pulse Ox 95 05/02/24 07:45 O2 Del Method Room Air 05/02/24 07:45 O2 Flow Rate 3 04/30/24 14:59 BMI result Body Mass Index 30.0 Const: General: comfortable, no acute distress and alert Orientation/consciousness: patient oriented x3 Resp: Effort & Inspection: normal respiratory effort GI: Inspection: No distended and Yes incision (clean) Palpation (GI): Soft to palpation, Tenderness to palpation present (GI) (mild incisional) and no guarding Skin: General skin exam: no rashes or lesions noted and no jaundice Neuro: General: patient oriented x3 and moves all extremities DS: Data Data Completed and Pending Completed studies during hospitalization [Text1]: 04/30/24 11:55 Surgical [PTH] Routine Gallbladder, cholecystectomy: Suppurative and gangrenous cholecystitis; cholesterolosis Labs on day of discharge: Preliminary micro results at discharge 04/29/24 12:50 Blood Culture - Preliminary Blood - Venous No growth after 48 hours. 04/29/24 12:50 Blood Culture - Preliminary Blood - Venous No growth after 48 hours. Discharge Plan Discharge Anticipated Discharge Date/Time: 05/02/24 08:06 Patient Disposition: Home, Self-Care Discharge Diagnosis: Acute cholecystitis, cholelithiasis Referrals: Chevy Ahumada MD [Primary Care Provider] - 1 Week Prashanth Coroando MD [Physician] - 1 Week Discharge Medications: New oxycodone 5 mg tablet 5 mg PO Q6H PRN (Reason: pain (scale score 7-10)) Qty: 15 0RF Rx Instructions: Partial Fill upon patient request. amoxicillin-pot clavulanate [Augmentin] 500-125 mg tablet 1 tab PO Q8H 7 Days Qty: 21 0RF Continued esomeprazole magnesium 20 mg capsule,delayed release(DR/EC) 20 mg PO DAILY@0630 Discharge Orders: Discharge Order (Routine); Ordered 05/02/24 Ordered By: Lee Mazzucco Diet: Low fat, low cholesterol Activity on Discharge: No heavy lifting Stand Alone Forms: Patient Portal Discharge page, Work/School Release Print Language: Belarusian Activity Restrictions/Additional Instructions: No lifting > 10 pounds for 1 MONTH Stay on low fat diet for 1 month No driving for one week Use warm compress or heating pad on low as needed Take Tylenol Extra-strength 1-2 tabs every 6 hours as needed Oxycodone every 6-8 hours as needed for pain Colace 100 mg every day as needed for constipation Follow up in office in one week (call office at [phone] for appointment). Care Plan Goals: RETURN TO NORMAL DIET AND ACTIVITY AFTER ONE MONTH Health Concerns: ABDOMINAL PAIN IN THE UPPER ABDOMEN Plan of Treatment: OPEN CHOLECYSTECTOMY Assessment: ACUTE CHOLECYSTITIS, CHOLELITHIASIS Discharge Date/Time: 05/02/24 11:34
== END 2024-05-02 11:34 | disposition home or self-care (01) | DRG 263 ==
LOC: HO.ED 15:55 → HO.EDOVER 16:01 → HO.S3 17:41
PROVIDERS: Nurse Practitioner Family; Admitting Provider Surgery; Emergency Provider Emergency Medicine Emergency Medical Services; PCP Internal Medicine; Visit Provider Surgery
PROC: 0FT44ZZ Resection of Gallbladder, Percutaneous Endoscopic Approach (ICD-10-PCS; CPT 47562; principal; 2024-04-30 11:00)
DX: K80.00 Calculus of gallbladder with acute cholecystitis without obstruction (principal); K82.8 Other specified diseases of gallbladder; Z79.899 Other long term (current) drug therapy
CPT/HCPCS: 36415; 74177; 76705; 80048; 80053; 80076; 81003; 82248; 82947; 83605; 83690; 85025; 87040; 88304; 93005; 99285; J0131; J0737; J1100; J1171; J1790; J1885; J2003; J2405; J2543; J2704; J3010; Q9967

== ENCOUNTER 2024-04-29 15:55 | Outpatient (BNV) | payer BC, SELFPAY | END 2024-04-29 15:57 | PROVIDERS: Admitting Provider Surgery; Emergency Provider Emergency Medicine Emergency Medical Services; PCP Internal Medicine; Visit Provider Internal Medicine Cardiovascular Disease | DX: R94.31 Abnormal electrocardiogram [ECG] [EKG] (principal) | CPT/HCPCS: 93010 ==

== ENCOUNTER → 2024-04-29 15:55 | Outpatient (BNV) | payer BC, SELFPAY | PROVIDERS: Admitting Provider Surgery; Emergency Provider Emergency Medicine Emergency Medical Services; PCP Internal Medicine; Visit Provider Surgery | DX: K81.0 Acute cholecystitis (principal); K80.00 Calculus of gallbladder with acute cholecystitis without obstruction | CPT/HCPCS: 47562; 99222 ==

== ENCOUNTER 2024-05-11 14:56 | Outpatient (AMB) | payer BC, SELFPAY ==
--- NOTE | 2024-05-11 14:56 | A.OFFVIS_ITS ---
Vital Signs 05/11/24 15:02 Height 6 ft 3 in Weight 244 lb 4 oz BMI 30.5 BP 138/70 Blood Pressure Location Lt brachial Position Sitting Pulse 87 Intake Visit Reasons: s/p open cholecystectomy Intake Note: Patient is seen in office for post op assessment post open cholecystectomy. Pt c/o: admits to healing as expected, elkin are clean and dry, no redness or discharge Health Assessment And Treatment Teacher Required: No Accompanied by: Self / Same As Patient Allergies No Known Allergies Allergy (Verified 05/11/24 15:03) HPI Comments Details: 58-year-old male patient returning 1 week following laparoscopic converted to open cholecystectomy for acute cholecystitis. Overall he feels much improved and reports only mild incisional pain. He is eating well but occasionally will have diarrhea after eating. COUNT INCLUDES THE [facility] Medical History Acute cholecystitis GERD (gastroesophageal reflux disease) Surgical History S/P cholecystectomy (04/30/24) Social History Household Members: Spouse and Family Housing: House Do you presently have visiting nurse or other home services: No Patient Tobacco Use Status: Never used Tobacco service: No Physical Exam Vital Signs: Last Vital Signs Pulse 87 05/11/24 15:02 BP 138/70 05/11/24 15:02 BMI result Body Mass Index 30.5 Const General: healthy appearing Nutritional Appearance: well nourished Orientation/consciousness: patient oriented x3 Resp Effort & Inspection: normal respiratory effort GI Other: Right Huang incision is clean, dry, and intact. Trocar incisions are also clean and intact without redness or discharge. Elkin removed and Steri-Strips applied. No hernia or infection is identified. Neuro General: patient oriented x3 Extrem Other: No edema Assessment & Plan Assessment & Plan (1) Acute cholecystitis: Code(s): K81.0 - Acute cholecystitis Category: Medical (2) S/P cholecystectomy: Onset Date: 04/30/24 Comment: Prashanth Coronado MD Code(s): Z90.49 - Acquired absence of other specified parts of digestive tract Category: Surgical Plan 58-year-old male patient status post laparoscopic converted to open cholecystect olesya for acute cholecystitis. He is doing very well in his wounds are healing nicely. He should continue to avoid fatty/fried foods and continue to avoid lifting greater than 10 lb for the next month. He will return in 1 month for follow-up examination. Coding Level of Care Code Global (80135) Diagnoses Acute cholecystitis K81.0 S/P cholecystectomy Z90.49
[2024-05-11 15:02] VITALS: BP 138/70; PULSE 87; BMI 30.5
== END 2024-05-11 15:14 | disposition home or self-care (01) ==
PROVIDERS: PCP Internal Medicine; Visit Provider Surgery
DX: K81.0 Acute cholecystitis (principal); Z90.49 Acquired absence of other specified parts of digestive tract
CPT/HCPCS: 99024

== ENCOUNTER → 2024-05-11 14:56 | Outpatient (BNVA) | payer BC, SELFPAY | PROVIDERS: PCP Internal Medicine; Visit Provider Surgery ==

== ENCOUNTER 2024-06-08 15:29 | Outpatient (AMB) | payer BC, SELFPAY ==
--- NOTE | 2024-06-08 15:30 | MHC.OFFVIS ---
Vital Signs 06/08/24 15:34 Height 6 ft 3 in Weight 244 lb 4.355 oz BMI 30.5 Respiration 16 Pulse 88 Intake Visit Reasons: one month s/p open cholecystectomy Intake Note: Patient is seen in office for one month follow up visit, post open cholecystectomy. 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 He feels much improved but does have occasional incisional pain when sitting for a prolonged period of time. Pain is mainly located at the incision. His bowels have improved with no further diarrhea. He is eating well without nausea or vomiting. [facility] Medical History Acute cholecystitis GERD (gastroesophageal reflux disease) Surgical History S/P cholecystectomy (04/30/24) Social History Household Members: Spouse and Family Housing: House Do you presently have visiting nurse or other home services: No Patient Tobacco Use Status: Never used Tobacco service: No Physical Exam Vital Signs: Last Vital Signs Pulse 88 06/08/24 15:34 Resp 16 06/08/24 15:34 BMI result Body Mass Index 30.5 Const General: no acute distress Nutritional Appearance: well nourished Orientation/consciousness: patient oriented x3 Resp Effort & Inspection: normal respiratory effort GI Other: Well-healed trocar and Huang incision without evidence of infection or hernia. Neuro General: patient oriented x3 Extrem General: Yes no clubbing, cyanosis or edema Assessment & Plan Assessment & Plan (1) S/P cholecystectomy: Onset Date: 04/30/24 Comment: Prashanth Coronado MD Code(s): Z90.49 - Acquired absence of other specified parts of digestive tract Category: Surgical Plan 59-year-old male patient with acute cholecystitis due to cholelithiasis status post laparoscopic converted to open cholecystectomy 1 month ago. He tolerated the procedure well and is now eating well without diarrhea, abdominal distention, nausea or vomiting. His wounds are healing nicely without evidence of infection or hernia. He may resume normal activity without restriction and should follow up as needed. Coding Level of Care Code Global (95179) Diagnoses S/P cholecystectomy Z90.49
[2024-06-08 15:34] VITALS: PULSE 88; RESP 16; BMI 30.5
== END 2024-06-08 16:09 | disposition home or self-care (01) ==
PROVIDERS: PCP Internal Medicine; Visit Provider Surgery
DX: Z90.49 Acquired absence of other specified parts of digestive tract (principal)
CPT/HCPCS: 99024

== ENCOUNTER 2025-04-21 11:57 | Emergency (ER) | payer BC, SELFPAY ==
--- NOTE | ~2025-04-21 | CT_ITS ---
CLINICAL HISTORY: Abdominal Pain Exam: Contrast-enhanced CT abdomen and pelvis with multiplanar reformats. Comparison: 04/29/2024. Findings: CT abdomen: Lung bases appear clear. Liver is free of focal lesions and ductal dilatation. Gallbladder is absent. Spleen appears unremarkable. Pancreas and adrenal glands appear unremarkable. Kidneys reveal a stable 13 mm left renal mid to upper pole cyst (4; 243,-5 Hounsfield units). Kidneys otherwise unremarkable. Small amount of free pelvic fluid is present. No abdominal ascites. No retroperitoneal masses or adenopathy. Abdominal aorta is normal caliber with minimal calcific athero sclerosis. Bowel loops reveal equivocal very minimal right colonic wall thickening (for example, 5; 38-46), raising the possibility of very mild nonspecific colitis. No other significant bowel wall thickening or abnormal distention. The appendix is unremarkable. No significant diverticular disease. CT pelvis: Prostate gland and seminal vesicles are stable. Urinary bladder is free of gross filling defects. No pelvic masses or adenopathy. Osseous structures reveal no destructive osseous lesions. Anterior abdominal wall reveals similar irregular soft tissue density overlying anterior abdominal wall at the level of the umbilicus (4; 403 and 6; 71, unchanged compared with the prior exam. Impression: 1. Findings raising the possibility of very mild nonspecific colitis involving the right colon. 2. No other acute abnormality or other CT explanation for pain. This document has been electronically signed by: Víctor Mclain MD on 04/21/2025 15:54:26
[2025-04-21 12:05] VITALS: BP 126/60; PULSE 96; RESP 20; TEMP 37.2; O2SAT 97; BMI 28.8
--- NOTE | 2025-04-21 12:07 | ED_ITS ---
HPI - General Adult General Chief complaint: Abdominal Pain Stated complaint: dehydrated Time Seen by Provider: 04/21/25 13:58 History of Present Illness ED Provider: Keeley Vickers NP HPI narrative: 59-year-old male PMH significant for GERD, prior cholecystitis status post cholecystectomy in 2023, presents to the ED with his for evaluation reporting generalized abdominal pain, most specifically in the left lower quadrant of the abdomen was well as persistent nausea and vomiting with poor p.o. intake. The patient reports that the last meal he had was Thanksgiving dinner, since then he has been having his symptoms. He is not passing gas, and is not burping. He denies any fever, chills. Reports a vague episode of left upper quadrant abdominal pain with radiation into below the left breast, though he feels this is worse with movement. He called his PCP, who recommended he come to the ED for IV fluids. Endorsing active nausea, generalized cramping sensation. No substernal chest pain or pressure, no shortness of breath. No urinary complaints such as dysuria, hematuria, urgency or frequency. Related Data Home Medications ?Medication ?Instructions ?Recorded ?Confirmed esomeprazole magnesium 20 mg 20 mg PO DAILY@0630 04/2904/29/24 capsule,delayed release Previous Rx's ?Medication ?Instructions ?Recorded amoxicillin 500 mg-potassium 1 tab PO Q8H 7 days #21 t abs 05/02/24 clavulanate 125 mg tablet (Augmentin) oxycodone 5 mg tablet 5 mg PO Q6H PRN pain (scale score 05/02/24 7-10) #15 tabs ondansetron 4 mg disintegrating 4 mg PO Q8H PRN nausea and 04/21/25 tablet vomiting #14 tabs Allergies Allergy/AdvReac Type Severity Reaction Status Date / Time No Known Allergies Allergy Verified 04/21/25 12:08 Review of Systems 2 Review of Systems: ROS is otherwise negative unless mentioned in HPI. [facility] Past Medical History Medical History Acute cholecystitis GERD (gastroesophageal reflux disease) Surgical History S/P cholecystectomy (04/30/24) Social History Social History Household Members: Spouse and Family Housing: House Do you presently have visiting nurse or other home services: No Patient Tobacco Use Status: Never used Tobacco Advance Directives: No Advance Directives Information Provided: Yes Do you have a plan to hurt others: No Plan service: No Physical Exam ED Exam Exam: Nursing notes and vital signs reviewed. Constitutional: Well-appearing, NAD. Alert. Oriented X3. Eyes: Pupils equal, round and reactive to light. ENT: Pharynx normal. Neck: Normal inspection. Neck supple. CVS: Normal heart rate and rhythm. Pulses normal. Respiratory: No respiratory distress. Breath sounds normal. Abdomen: Soft and nontender, nondistended. +BSx4. No CVA tenderness bilaterally. Skin: Skin warm and dry. Normal skin color. Extremities: No lower extremity edema. Neuro: Oriented X 3. No motor deficit. Vital Signs: Vital Signs - 24 hr 04/21/25 12:05 04/21/25 15:10 Temperature 98.9 F 98.2 F Pulse Rate 96 81 Respiratory Rate 20 16 Blood Pressure 126/60 133/68 Pulse Oximetry 97 96 Oxygen Delivery Method Room Air Room Air BMI result Body Mass Index 28.8 Course Course Course Narrative: This is a Rapid Medical Examination (RME) performed by Kelechi Degroot PA-C in triage. Full HPI, ROS, assessment and treatment plan per primary provider in the Main ED. Hx: 59 yo M here for eval of N/D, LLQ abd pain, RUFF. no sick contacts. called PCP - told to come to ED for IVF. hx of cholecystectomy. Plan: labs, viral swabs Medications Administered Discontinued Medications Generic Name Dose Route Start Last Admin Trade Name Freq PRN Reason Stop Dose Admin Sodium Chloride 1,000 mls @ 999 mls/hr 04/21/25 14:00 04/21/25 15:15 Ns IV 04/21/25 15:00 Infused .Q1H1M ONE Infusion Iohexol 100 ml 04/21/25 14:58 04/21/25 14:59 Iohexol 350 Mg/Ml 100 Ml Infus..Btl IV 04/21/25 14:59 85 ml ONCE ONE Administration Prochlorperazine Edisylate 5 mg 04/21/25 14:07 04/21/25 14:14 Prochlorperazine Edisylate 10 Mg/2 Ml Vial IVPUSH 04/21/25 14:08 5 mg ONCE ONE Administration Medical Decision Making Medical Decision Making [facility] Narrative: Benign abdominal exam, no CVA tenderness. He reports feeling very dehydrated, he is requesting IV fluids. He called his PCP who recommended he come to the ED for fluids. He does report pain to the left lower quadrant, concerning for underlying diverticulitis, cystitis. He reports the inability to tolerate p.o. since Thanksgiving so now 3 days, but has moist mucous membranes. We will obtain CT imaging of the abdomen, pelvis as well as lab work. Given the complaint of left upper quadrant pain/below the breast pain, we will obtain troponin, EKG and reassess. We will administer antiemetic, fluid bolus as well. 1715-- reporting significant improvement in the ED, was able to take a nap and tolerate a p.o. trial. His at bedside reports that he also appears much better. To flat troponins. This LFTs are mildly elevated, 97, 127. I do not see he has been this high previously, he will need follow up outpatient with PCP for retesting. He does tell me he has been drinking alcohol over the holidays, and does drink alcohol frequently. The CT scan was reassuring, raising concern for possibly very mild nonspecific colitis, but no other acute abnormality. Given he is now tolerating p.o., has the absence of leukocytosis on his lab work, and is afebrile, no tachycardia, there is no indication for antibiotics or for additional workup. I did recommend that he engages in a bland diet over the next several days and follows up with PCP within the next 1 week. I have also prescribed a short course of Zofran that can be use as needed for nausea/vomiting. With any worsening complaints, the patient is to return to the ED. He and his are agreeable with plan of care. Differential Diagnosis Differential Diagnoses: The differential diagnosis associated with the presentation includes Cystitis, diverticulitis, bowel obstruction Admission/Observation Consideration of admission/observation: Escalation of care including admission/observation considered (Not indicated) Lab Data [facility] Lab Attestation statement: I reviewed the patient's lab results. (Elevated LFTs, otherwise reassuring.) 04/21/25 12:44 04/21/25 12:44 Labs: Lab Results 04/21/25 04/21/25 04/21/25 Range/Units 12:40 12:44 16:19 WBC 8.6 (4.8-10.8) X10*3/uL RBC 4.90 (4.60-5.80) X10*6/uL Hgb 15.7 (14.0-18.0) g/dl Hct 44.3 (42.0-52.0) % MCV 90.4 (80.0-98.0) fL MCH 32.0 (27.0-33.0) pg MCHC 35.4 (31.0-36.0) g/dl RDW 12.8 (11.0-16.0) % Plt Count 159 L (160-400) X10*3/uL MPV 9.8 (9.4-12.4) fL Immature Gran % (Auto) 0.4 (0.0-0.4) % Neut % (Auto) 90.0 H (45-73) % Lymph % (Auto) 3.5 L (20-40) % [place] % (Auto) 5.7 (2-11) % Eos % (Auto) 0.0 (0-4) % Baso % (Auto) 0.4 (0-2) % Lymph # (Auto) 0.3 L (1.2-4.9) X10*3/uL [place] # (Auto) 0.5 (0.1-1.2) X10*3/uL Eos # (Auto) 0.0 (0.0-0.4) X10*3/uL Baso # (Auto) 0.0 (0.0-0.2) X10*3/uL Abs Immat Gran (auto) 0.03 (0.00-0.03) X10*3/uL Absolute Neuts (auto) 7.7 (2.0-8.3) x10*3/uL Absolute Nucleated RBC 0.000 (0.0-0.012) X10*3/uL Nucleated RBC % (auto) 0.0 (0.0-0.2) /100WBC Sodium 140 (135-145) mmol/L Potassium 3.8 (3.3-5.1) mmol/L Chloride 107 (96-108) mmol/L Carbon Dioxide 24 (22-29) mmol/L Anion Gap 13 (12-20) BUN 16 (9-16) mg/dL Creatinine 1.14 (0.5-1.4) mg/dL Estim Creat Clear Calc 92.4 Estimated GFR > 60 Random Glucose 140 H (60-115) mg/dL Calcium 8.9 (8.4-10.2) mg/dL Magnesium 1.8 (1.6-2.6) mg/dL Total Bilirubin 1.1 H (0.0-1.0) mg/dL AST 97 H (5-37) U/L ALT 127 H (0-40) U/L Alkaline Phosphatase 120 H (39-117) U/L Troponin I High Sens 2.9 2.8 (<3.5-35.0) ng/L Total Protein 6.6 (6.5-8.0) g/dL Albumin 4.4 (3.5-5.0) g/dL Lipase 12 (8-78) U/L Ethyl Alcohol < 10 mg/dL Influenza Type A (PCR) NEGATIVE (Negative) Influenza Type B (PCR) NEGATIVE (Negative) RSV RNA Qual (PCR) NEGATIVE (Negative) SARS-CoV-2 RNA (RT-PCR) NEGATIVE (Negative) Independent Interpretation I performed an independent interpretation of an: EKG Interpretation: Rate: 79 Rhythm: NSR, RBBB [place]: 30/72/4 Normal P waves. Normal SYED. Normal QRS complex. ST T wave : no dep, elev qTC: 481 prior studies: similar The study has been interpreted contemporaneously by me. Radiology Impression Discussion of test interpretation with radiology: I have reviewed the radiologist's reading. Radiologist Impression: CT Abdomen/pelvis W: Impression: 1. Findings raising the possibility of very mild nonspecific colitis involving the right colon. 2. No other acute abnormality or other CT explanation for pain. Independent Historian Clinical information obtained from an independent historian. History obtained from or confirmed by: Spouse External Record Review External record reviewed: Office record, Outpatient record and Other (Prior ED visit) Prescription Management I considered prescription management with: Antibiotic Not indicated Chronic Conditions Patient?s care impacted by: Other (GERD) Social Determinants Patient?s care significantly limited by Social Determinants of Health including: Alcoholism and drug addiction in family and Problems related to primary support group Discharge Plan Discharge Clinical Impression: Colitis Patient Disposition: Home, Self-Care Instructions: Acute Nausea and Vomiting (DC), Colitis (ED) Additional Instructions: As we discussed, you were seen in the ER stay for nausea, vomiting and diarrhea. Your CT scan raises concern for some colitis, though nonspecific, and does not appear to be infectious in nature that requires antibiotics. You were eating and drinking while in the ER, and your lab work was otherwise reassuring. Your liver function tests are mildly elevated, please have these rechecked with your PCP outpatient within the next 1 week. I have prescribed you a short course of Zofran that can be used as needed for nausea and vomiting. If you develop any worsening complaints at any time, please return to the ED for reassessment. Prescriptions: New ondansetron 4 mg tablet,disintegrating 4 mg PO Q8H PRN (Reason: nausea and vomiting) Qty: 14 0RF No Action esomeprazole magnesium 20 mg capsule,delayed release(DR/EC) 20 mg PO DAILY@0630 oxycodone 5 mg tablet 5 mg PO Q6H PRN (Reason: pain (scale score 7-10)) Qty: 15 0RF Rx Instructions: Partial Fill upon patient request. amoxicillin-pot clavulanate [Augmentin] 500-125 mg tablet 1 tab PO Q8H 7 Days Qty: 21 0RF Referrals: Chevy Ahumada MD [Primary Care Provider, Internal Medicine] Print Language: Czech
[2025-04-21 12:49] LABS: Hematocrit 44.3 % (42.0-52.0); Hemoglobin 15.7 g/dl (14.0-18.0); Imm Gran Abs Auto 0.03 X10*3/uL (0.00-0.03); Imm Gran Pct Auto 0.4 % (0.0-0.4); Lymphocytes Absolute Auto 0.3 X10*3/uL (1.2-4.9); MANUAL DIFF FLAG NO; Mean Corpuscular HGB Conc 35.4 g/dl (31.0-36.0); Mean Corpuscular Hemoglobin 32.0 pg (27.0-33.0); Mean Corpuscular Volume 90.4 fL (80.0-98.0); NRBC Abs Auto 0.000 X10*3/uL (0.0-0.012); NRBC Pct Auto 0.0 /100WBC (0.0-0.2); Platelet Count 159 X10*3/uL (160-400); Red Blood Count 4.90 X10*6/uL (4.60-5.80); White Blood Count 8.6 X10*3/uL (4.8-10.8)
[2025-04-21 13:08] LABS: Alanine Aminotransferase 127 U/L (0-40); Albumin Level 4.4 g/dL (3.5-5.0); Alkaline Phosphatase 120 U/L (39-117); Anion Gap 13 (12-20); Aspartate Amino Transferase 97 U/L (5-37); Blood Urea Nitrogen 16 mg/dL (9-16); Calcium 8.9 mg/dL (8.4-10.2); Carbon Dioxide 24 mmol/L (22-29); Chloride 107 mmol/L (96-108); Creatinine Clr Calc Pharmacy 92.4; Estimated Glomerular Filt Rate > 60; Lipase 12 U/L (8-78); Magnesium 1.8 mg/dL (1.6-2.6); Potassium 3.8 mmol/L (3.3-5.1); Sodium 140 mmol/L (135-145); Total Protein 6.6 g/dL (6.5-8.0)
[2025-04-21 13:30] LABS: Resp Syncy Virus RNA Qual PCR NEGATIVE (Negative); SARS COV2 PCR INHOUSE NEGATIVE (Negative)
--- NOTE | 2025-04-21 14:07 | ECG_ITS ---
Test Reason : ABD PAIN Blood Pressure : */* mmHG Vent. Rate : 79 BPM Atrial Rate : 79 BPM P-R Int : 160 ms QRS Dur : 156 ms QT Int : 420 ms P-R-T Axes : 30 72 4 degrees QTcB Int : 481 ms Normal sinus rhythm Right bundle branch block T wave abnormality, consider inferior ischemia Abnormal ECG When compared with ECG of 29-Apr-2024 16:49, No significant change was found Referred By: Keeley Vickers Electronically Signed By: AYUSH FISCHER
[2025-04-21 14:42] LABS: Troponin-I High Sensitivity 2.9 ng/L (<3.5-35.0)
[2025-04-21] MEDS: iohexoL 350 MG/ML 100 ML INFUS..BTL IV (14:59)
[2025-04-21 15:10] VITALS: BP 133/68; PULSE 81; RESP 16; TEMP 36.8; O2SAT 96
[2025-04-21 16:49] LABS: Troponin-I High Sensitivity 2.8 ng/L (<3.5-35.0)
[2025-04-21 17:36] VITALS: BP 133/68; PULSE 81; RESP 16; TEMP 36.8; O2SAT 96
== END 2025-04-21 17:36 | disposition home or self-care (01) ==
PROVIDERS: Nurse Practitioner; Physician Assistant Medical; Emergency Provider Emergency Medicine; PCP Internal Medicine
DX: K52.9 Noninfective gastroenteritis and colitis, unspecified (principal); E86.0 Dehydration; R10.12 Left upper quadrant pain; R11.0 Nausea; I45.10 Unspecified right bundle-branch block; R94.31 Abnormal electrocardiogram [ECG] [EKG]; Z79.899 Other long term (current) drug therapy; Z03.818 Encounter for observation for suspected exposure to other biological agents ruled out; Z51.81 Encounter for therapeutic drug level monitoring
CPT/HCPCS: 36415; 74177; 80053; 80307; 83690; 83735; 84484; 85025; 87637; 93005; 96361; 96374; 99285; J0737; Q9967

== ENCOUNTER → 2025-04-21 14:00 | Outpatient (BNV) | payer BC, SELFPAY | PROVIDERS: PCP Internal Medicine; Visit Provider Radiology Diagnostic Radiology | DX: R10.9 Unspecified abdominal pain (principal) | CPT/HCPCS: 74177 ==

== ENCOUNTER → 2025-04-21 14:07 | Outpatient (BNV) | payer BC, SELFPAY | PROVIDERS: Emergency Provider Emergency Medicine; PCP Internal Medicine; Visit Provider Internal Medicine | DX: I45.10 Unspecified right bundle-branch block (principal) | CPT/HCPCS: 93010 ==